=== PATIENT | female | born 1945 | race Caucasian/White ===

== ENCOUNTER 2018-05-16 00:40 | Emergency (ER) | payer OTHER ==
[~2018-05-16] VITALS: Ht 160 cm; Wt 93.4 kg
[2018-05-16] MEDS ORDERED: SYNTHROID125 MCG (00:57)
[2018-05-16] MEDS ORDERED: ANUSOL-HC25 MG RECTAL (03:45)
== END 2018-05-16 04:23 | disposition home or self-care (01) ==
LOC: ER 00:40
DX: K64.8 Other hemorrhoids (principal); K62.5 Hemorrhage of anus and rectum

== ENCOUNTER 2018-05-16 14:54 | Inpatient (IN) | payer OTHER ==
[~2018-05-16] VITALS: Ht 167.6 cm; Wt 90.7 kg
[~2018-05-16 14:54] MED LIST: ANUSOL-HC25 MG RECTAL; SYNTHROID125 MCG
== END 2018-05-20 14:52 | disposition home or self-care (01) | DRG 379 ==
LOC: ER 14:54 → MEDJ 22:59
PROC: BW25YZZ Computerized Tomography (CT Scan) of Chest, Abdomen and Pelvis using Other Contrast (ICD-10-PCS; 2018-05-16)
PROC: 0DJD8ZZ Inspection of Lower Intestinal Tract, Via Natural or Artificial Opening Endoscopic (ICD-10-PCS; principal; 2018-05-20)
DX: K57.33 Diverticulitis of large intestine without perforation or abscess with bleeding (principal); E86.0 Dehydration; E03.8 Other specified hypothyroidism; K64.8 Other hemorrhoids

== ENCOUNTER 2019-01-16 08:44 | Emergency (ER) | payer OTHER ==
[~2019-01-16] VITALS: Ht 160 cm; Wt 86.6 kg
[2019-01-16] MEDS ORDERED: COZAAR25 MG (08:53)
== END 2019-01-16 19:25 | disposition home or self-care (01) ==
LOC: ER 08:44
DX: I16.0 Hypertensive urgency (principal); I10 Essential (primary) hypertension